=== PATIENT | male | born 1955 | race Caucasian/White ===

== ENCOUNTER 2020-01-16 14:13 | Emergency (ER) | payer BC, OTHER ==
[2020-01-17 14:40] LABS: SARS-CoV-2 N Gene Positive; SARS-CoV-2 orf1ab Positive
[2020-01-17 14:41] LABS: SARS-CoV-2 MS2 Positive; SARS-CoV-2 S Gene Positive
== END 2020-01-16 14:59 | disposition home or self-care (01) ==
LOC: NAV ERS 14:13
DX: U07.1 COVID-19 (principal)
CPT/HCPCS: 87635; 99283; U0003

== ENCOUNTER 2024-05-12 09:53 | Inpatient (IN) | payer OTHER ==
[2024-05-13 15:29] VITALS: BMI 32.2
[2024-05-13] MEDS: Pentoxifylline 400 MG ER.TAB PO SCH (16:00)
[2024-05-13] MEDS: Aspirin 81 mg Enteric Coated Tablet PO SCH (20:19)
[2024-05-13] MEDS: Atorvastatin Calcium 10 MG TAB PO SCH (20:19)
[2024-05-13] MEDS: Famotidine 20 MG TAB PO SCH (20:19)
[2024-05-14] MEDS: Levothyroxine Sodium 100 MCG TAB PO SCH (05:32)
[2024-05-14 05:52] LABS: #Basophils 0.1 thou/uL (0.0-0.2); #Eosinophils 0.7 thou/uL (0.0-0.7); #Lymphocytes 3.6 thou/uL (1.20-3.40); #Neutrophils 6.8 thou/uL (1.40-6.50); %Basophils 1.2 % (0.0-1.0); %Eosinophils 5.7 % (0.0-10.0); %Lymphocytes 29.4 % (21.0-51.0); %Monocytes 7.8 % (0.0-10.0); %Neutrophils 55.9 % (42.0-75.0); Hematocrit 41.1 % (42.0-52.0); Hemoglobin 13.8 g/dL (14.0-18.0); Mean Corpuscular HGB CONC 33.6 g/dL (32.0-36.0); Mean Corpuscular Hemoglobin 29.1 pg (27.0-31.0); Mean Corpuscular Volume 86.5 fl (78.0-98.0); Mean Platelet Volume 6.6 fL (7.4-10.4); Platelet Count 419 10x3/uL (130-400); RBC Distribution Width 11.7 % (11.5-14.5); Red Blood Cell (RBC) Count 4.74 mill/uL (4.70-6.10); White Blood Cell (WBC) Count 12.2 10x3/uL (4.8-10.8)
[2024-05-14 06:06] LABS: ALT (SGPT) 30 U/L (8-55); AST (SGOT) 30 U/L (5-34); Albumin 3.2 g/dL (3.4-4.8); Alkaline Phosphatase 78 U/L (40-110); Anion Gap 13 mmol/L (10-20); BUN (Urea Nitrogen) 15 mg/dL (8.4-25.7); Bilirubin, Total 0.7 mg/dL (0.2-1.2); Calc. Creatinine Clearance 115 mL/min (70-130); Calcium 9.4 mg/dL (7.8-10.44); Carbon Dioxide 25 mmol/L (23-31); Chloride 106 mmol/L (98-107); Estimated GFR 93; Globulin 3.6 g/dL (2.4-3.5); Glucose 102 mg/dL (80-115); Potassium 3.8 mmol/L (3.5-5.1); Protein, Total 6.8 g/dL (5.8-8.1); Sodium 140 mmol/L (136-145)
[2024-05-14] MEDS: Polyethylene Glycol 3350 17 GM Packet PO SCH (07:58)
[2024-05-14] MEDS: Multivitamin W/ Minerals 1 TAB PO SCH (07:58)
[2024-05-14] MEDS: Calcium Carbonate 600 MG + Vit D TAB PO SCH (07:59)
[2024-05-14] MEDS: Escitalopram Oxalate 10 mg Tablet PO SCH (08:01)
[2024-05-14] MEDS: Diclofenac 1% 100 GM Topical GEL TP SCH (09:05)
[2024-05-14] MEDS: Pantoprazole DR 40 MG TAB PO SCH (10:08)
[2024-05-14] MEDS: oxyCODONE 5 MG TAB PO PRN (21:24)
[2024-05-15 05:53] LABS: #Basophils 0.2 thou/uL (0.0-0.2); #Eosinophils 0.8 thou/uL (0.0-0.7); #Lymphocytes 4.1 thou/uL (1.20-3.40); #Monocytes 1.1 thou/uL (0.11-0.59); #Neutrophils 6.5 thou/uL (1.40-6.50); %Basophils 1.3 % (0.0-1.0); %Eosinophils 6.6 % (0.0-10.0); %Lymphocytes 32.2 % (21.0-51.0); %Monocytes 8.8 % (0.0-10.0); Hematocrit 40.9 % (42.0-52.0); Hemoglobin 13.6 g/dL (14.0-18.0); Mean Corpuscular HGB CONC 33.2 g/dL (32.0-36.0); Mean Corpuscular Hemoglobin 29.3 pg (27.0-31.0); Mean Corpuscular Volume 88.3 fl (78.0-98.0); Platelet Count 420 10x3/uL (130-400); RBC Distribution Width 12.4 % (11.5-14.5); Red Blood Cell (RBC) Count 4.63 mill/uL (4.70-6.10); White Blood Cell (WBC) Count 12.7 10x3/uL (4.8-10.8)
[2024-05-15] MEDS: Acetaminophen 325 MG TAB PO PRN (16:23)
[2024-05-16 05:54] LABS: #Basophils 0.1 thou/uL (0.0-0.2); #Eosinophils 0.8 thou/uL (0.0-0.7); #Lymphocytes 3.2 thou/uL (1.20-3.40); #Neutrophils 6.9 thou/uL (1.40-6.50); %Basophils 1.1 % (0.0-1.0); %Eosinophils 6.9 % (0.0-10.0); %Lymphocytes 26.8 % (21.0-51.0); %Monocytes 8.1 % (0.0-10.0); %Neutrophils 57.1 % (42.0-75.0); Hematocrit 40.1 % (42.0-52.0); Hemoglobin 13.8 g/dL (14.0-18.0); Mean Corpuscular HGB CONC 34.4 g/dL (32.0-36.0); Mean Corpuscular Hemoglobin 29.7 pg (27.0-31.0); Mean Corpuscular Volume 86.3 fl (78.0-98.0); Mean Platelet Volume 6.8 fL (7.4-10.4); Platelet Count 429 10x3/uL (130-400); RBC Distribution Width 12.2 % (11.5-14.5); Red Blood Cell (RBC) Count 4.65 mill/uL (4.70-6.10)
[2024-05-16] MEDS ORDERED: Diclofenac 1% 100 GM Topical GEL TP PRN (08:45)
[2024-05-17] MEDS: Acetaminophen 325 MG TAB PO PRN (09:13)
[2024-05-17] MEDS: Amlodipine 10 MG TAB PO SCH (09:13)
[2024-05-17] MEDS: Losartan 25 MG TAB PO SCH (09:13)
[2024-05-17] MEDS: Melatonin 3 MG TAB PO SCH (20:16)
[2024-05-21 05:59] VITALS: BMI 26.2
[2024-05-21 12:51] VITALS: TEMP 98
[2024-05-21 14:50] VITALS: BP 128/68
== END 2024-05-21 16:20 | disposition home or self-care (01) | DRG 561 ==
LOC: NAV ACUTE 05-13 14:55
PROVIDERS: ADMIT Student in an Organized Health Care Education/Training Program; ATTEND Student in an Organized Health Care Education/Training Program
DX: S72.141D Displaced intertrochanteric fracture of right femur, subsequent encounter for closed fracture with routine healing (principal); W18.30XD Fall on same level, unspecified, subsequent encounter; E03.9 Hypothyroidism, unspecified; E78.5 Hyperlipidemia, unspecified; I10 Essential (primary) hypertension; Z90.89 Acquired absence of other organs; Z98.890 Other specified postprocedural states; I73.9 Peripheral vascular disease, unspecified; F32.A Depression, unspecified; F41.9 Anxiety disorder, unspecified; Z79.82 Long term (current) use of aspirin; G47.00 Insomnia, unspecified; Z79.899 Other long term (current) drug therapy; I83.023 Varicose veins of left lower extremity with ulcer of ankle
CPT/HCPCS: 36415; 80053; 85025; 97602